=== PATIENT | female | born 1965 | race Caucasian/White ===

== ENCOUNTER → 2018-12-19 | Outpatient (CLI) | payer BC | END | disposition home or self-care (01) | LOC: CARD 09:04 | PROVIDERS: ATTEND Nurse Practitioner Primary Care | DX: R94.31 Abnormal electrocardiogram [ECG] [EKG] (principal); R00.2 Palpitations; R06.02 Shortness of breath; Z98.82 Breast implant status | CPT/HCPCS: 93017; 93306 ==

== ENCOUNTER → 2018-12-27 | Outpatient (CLI) | payer BC | END | disposition home or self-care (01) | LOC: CFH 08:45 | PROVIDERS: ATTEND Nurse Practitioner Primary Care | DX: M16.12 Unilateral primary osteoarthritis, left hip (principal) ==